=== PATIENT | male | born 1950 | race Two or more races ===

== ENCOUNTER → 2017-10-02 | Outpatient (CLI) | payer OTHER ==
[~2017-10-02] VITALS: Ht 185.4 cm; Wt 80.9 kg
[2017-10-02 12:29] VITALS: BP 136/75; PULSE 66; Ht 185.4 cm; Wt 80.9 kg
== END | disposition home or self-care (01) ==
LOC: C.NEUR 12:18
PROVIDERS: ATTEND Internal Medicine Pulmonary Disease
DX: G47.33 Obstructive sleep apnea (adult) (pediatric) (principal); J30.9 Allergic rhinitis, unspecified; J45.909 Unspecified asthma, uncomplicated; Z88.6 Allergy status to analgesic agent; Z88.0 Allergy status to penicillin

== ENCOUNTER 2024-02-05 10:08 | Observation (INO) ==
[2024-02-05 10:49] LABS: Basophils # (auto) 0.04 K/uL (0.00-0.20); Basophils % (auto) 0.5 %; Eosinophils # (auto) 0.48 K/uL (0.00-0.50); Hematocrit (blood only) 36.8 % (42.0-52.0); Hemoglobin 12.8 g/dl (14.0-18.0); Immature Granulocytes # (auto) 0.12 K/uL (0.01-0.20); Immature Granulocytes % (auto) 1.5 %; Lymphocytes # (auto) 3.28 K/uL (1.20-3.40); Lymphocytes % (auto) 41.2 %; Mean Corpuscular Hemoglobin 31.3 pg (25.0-34.0); Mean Corpuscular Hgb Conc 34.8 g/dL (32.0-36.0); Mean Platelet Volume 9.8 fL (9.4-12.4); Monocytes % (auto) 10.1 %; Neutrophils # (auto) 3.24 K/uL (1.40-6.50); Neutrophils % (auto) 40.7 %; Platelet Count 226 K/uL (130-400); RDW Coefficient of Variation 12.4 % (11.5-14.5); RDW Standard Deviation 40.7 fL (36.4-46.3); Red Blood Count 4.09 M/uL (4.70-6.10); White Blood Count 7.96 K/ul (4.8-10.8)
[2024-02-05 11:09] LABS: Albumin Level 3.8 gm/dl (3.4-5.0); BUN Creatinine Ratio 14.4 (10-20); Bilirubin,Total 0.6 mg/dl (0.2-1.0); Calcium 8.9 mg/dl (8.6-10.3); Creatinine Clr Calc Pharmacy 62.9 ml/min; Est GFR (African American) 70.5 ml/min; Est GFR (Non-African American) 60.9 ml/min; Globulin 3.8 gm/dl (2.5-4.0); Potassium 4.2 mmol/L (3.5-5.1); Total Protein 7.6 gm/dl (6.0-8.3)
[2024-02-05 11:16] LABS: Troponin I High Sensitivity 6.1 pg/ml (0-20)
[2024-02-05 11:17] LABS: Partial Thromboplastin Ratio 0.9; Partial Thromboplastin Time 25 Seconds (21-31); Prothrombin Time 10.6 Seconds (9.0-12.0)
--- NOTE | 2024-02-05 11:41 | Emergency Department Note ---
Impression & Plan Precordial chest pain, Exertional chest pain, Anemia ED Provider Note NAME: SHASHI BECERRA AGE: 73 SEX: M : 1950 ARRIVES VIA: Walk-In INFORMANT: [Patient] ED PROVIDER(S): [Kyle Gómez MD] CHIEF COMPLAINT: Chest pain HISTORY OF PRESENT ILLNESS: The patient is a 73-year-old male who presents to the ER with exertional chest pain. This has been occurring for a few months. The pain is noticed with walking and exertion. He notices it mostly when he tries to walk uphill. The pain can last for minutes and then resolves with rest. The patient saw pulmonology as well as family doctor's office. He was referred to the ER as they feel the patient may need a cardiac catheterization. He has previously had 2 stress tests. Patient is traveling out of the country in 10 days. To this point, he has no diagnosed coronary disease. PMHx/PSHx/Social Hx: See Below PHYSICAL EXAM: GENERAL: Patient is in no acute distress. HEENT: No acute trauma, normocephalic atraumatic, mucous membranes moist, no nasal congestion. NECK: No stridor, no adenopathy, no meningismus, trachea is midline. LUNGS: Clear to auscultation bilaterally, no wheeze, no rhonchi, breath sounds equal. HEART: Bradycardic, regular rhythm, no murmurs. ABDOMEN: Soft, nontender, no peritonitis. EXTREMITIES: No cyanosis, full range of motion of all the joints without pain or difficulty. No pedal edema. NEUROLOGIC: Oriented x 3, no acute motor or sensory deficits, no focal weakness. SKIN: No jaundice, no diaphoresis. DIFFERENTIAL DIAGNOSIS: Angina, [place], anemia, CHF, among others. EMERGENCY DEPARTMENT PROCEDURES: MEDICAL DECISION MAKING: There is no leukocytosis. A mild anemia was seen. There was a normal platelet count. No coagulopathy. No renal failure or significant electrolyte abnormality. No concerning liver enzyme elevation. ECG showed a sinus bradycardia, no ischemia. Cardiac enzyme testing x 1 is not consistent with acute cardiac injury. Chest x-ray does not show mediastinal widening, pneumonia or pneumothorax. On exam, the patient was resting comfortably. He had no complaints of chest pain. The patient presents with exertional chest pain. This has been ongoing for months. His complaints were suggestive of angina. He has in the past undergone stress testing but has not been diagnosed with coronary disease. He was referred by his tr[facility] pinion and wheel and family doctor's office as further cardiac workup was felt warranted. Patient is in need of a hospital stay. I agree he requires further workup, likely a cardiac catheterization. I spoke with the patient, I spoke with case management, the on-call hospitalist was consulted. Cardiology was consulted and spoke with the admitting hospitalist. Prior/Outside records/notes reviewed: None ECG per my interpretation: Indication was chest pain. The ECG shows a sinus bradycardia with a rate of 51. There is no acute ST elevation, no PVCs. The QTc is 414. Continuous Cardiac Monitoring per my interpretation: An order was placed for continuous cardiac monitoring. The monitor shows a rate of 56 with sinus pericardia. Imaging/x-ray results per my interpretation: Chest x-ray does not show mediastinal widening, pneumonia or pneumothorax. Chronic Medical/Social conditions affecting care: Advanced age. Care/Management discussed with: Case management, the on-call hospitalist. Level of care consideration(s): After review of the information above and other included data: --I believe the patient requires escalation of care to admission DISPOSITION: Admission Past Med/Surg History Problem List (Updated 02/05/24 @ 15:39 by Kyle Gómez MD) Anemia (Acute) Exertional chest pain (Acute) Precordial chest pain (Acute) Exertional angina History of latent tuberculosis Chronic cough Allergic rhinitis with postnasal drip Appendix disease Weak urinary stream Urinary symptom or sign Obstructive sleep apnea Psoriasis Allergic conjunctivitis and rhinitis (Acute) Asthma (Acute) Medical History Back problem History of bronchitis Dental root implant present (~2023) Hypertension Rheumatoid arthritis Surgical History (Updated 12/24/23 @ 12:04 by Sil Cifuentes, KORI) Hx of colonoscopy History of tonsillectomy and adenoidectomy Family History (Updated 01/02/24 @ 13:29 by Tiffany Clements, KORI) Mother Dementia Hypertension Stroke Heart disease Brother Hypertension Dyslipidemia Cancer Father Lung cancer Cancer Family/Other Cancer Other Asthma Social History Smoking Status: Never smoker Hx Alcohol Use: Yes Hx Substance Use: No Preferred Language: Amharic marital status: Current Living Situation: Spouse current occupational status: employed current occupation: Professor How many Children do You have: 2 Feels Safe at Home: Yes Diet: vegetarian during the past year weight has: remained stable Allergies Allergies Allergy/AdvReac Type Severity Reaction Status Date / Time ibuprofen Allergy Abdominal Verified 02/05/24 13:48 Pain perflutren [From Definity] Allergy Back Pain Verified 02/05/24 13:48 pollen extracts Allergy Cough Verified 02/05/24 13:48 Codeine Derivatives Allergy Unknown Uncoded 01/24/24 10:07 Penicillins Allergy Unknown Uncoded 01/24/24 10:07 Home Meds Home Medications Medication Instructions Recorded Confirmed diphenhydramine HCl 25 mg capsule 25 mg PO Q8H PRN Insomnia 04/15/19 02/05/24 (Benadryl) adalimumab 40 mg/0.8 mL 40 mg subcut Q14D 12/12/22 02/05/24 subcutaneous syringe kit (Humira) dupilumab 200 mg/1.14 mL 200 mg subcut .EVERY 2 WEEKS 12/12/22 02/05/24 subcutaneous pen injector ([employer]) CPAP Machine 02/05/24 02/05/24 fluticasone 100 mcg-salmeterol 50 1 inh inhalation DAILY 02/05/24 02/05/24 mcg/dose blistr powdr for inhalation (Advair Diskus) lisinopril 20 1 tab PO BID 02/05/24 02/05/24 mg-hydrochlorothiazide 12.5 mg tablet metoprolol succinate 25 mg 25 mg PO DAILY 02/05/24 02/05/24 tablet,extended release 24 hr Previous Rx's Medication Instructions Recorded albuterol sulfate 90 mcg/actuation 2 puff inhalation Q6H PRN 01/30/24 aerosol inhaler shortness of breath or wheezing #8.5 grams fluticasone propionate 50 1 spray intranasal DAILY #9.9 grams 01/30/24 mcg/actuation nasal spray,suspension (Allergy Relief (fluticasone)) montelukast 10 mg tablet 10 mg PO QPM #30 tabs 01/30/24 (Singulair) Results & Data (ED) Vital Signs Vital Signs - 24 hr 02/05/24 10:14 02/05/24 11:24 02/05/24 11:24 Temperature 36.6 C Temperature Source Temporal Artery Scan Pulse Rate 55 L 46 L Pulse Rate [Finger] 44 L Pulse Rate from SpO2 Sensor Pulse Rhythm [Finger] Regular Pulse Strength [Finger] Normal Respiratory Rate 19 18 18 Respiratory Effort / Characteristics Non-Labored Spontaneous Non-Labored Spontaneous Respiratory Depth Normal Normal Respiratory Pattern Blood Pressure 133/63 Blood Pressure [Right Arm] 154/77 H Blood Pressure Mean 86 Blood Pressure Mean [Right Arm] 102 Blood Pressure Position Sitting Pulse Oximetry 100 99 97 Oxygen Delivery Method Room Air Room Air Room Air Sepsis Recent Fever Within 48 Hours No Sepsis New/Unexplained Change in Mental Status No Sepsis Action Taken by Nursing No Action Required 02/05/24 11:45 02/05/24 12:03 02/05/24 12:30 Temperature Temperature Source Pulse Rate 56 L 53 L 57 L Pulse Rate [Finger] Pulse Rate from SpO2 Sensor 52 L Pulse Rhythm [Finger] Pulse Strength [Finger] Respiratory Rate 15 16 Respiratory Effort / Characteristics Respiratory Depth Respiratory Pattern Blood Pressure 152/82 H 183/82 H Blood Pressure [Right Arm] Blood Pressure Mean 105 115 Blood Pressure Mean [Right Arm] Blood Pressure Position Pulse Oximetry 99 99 Oxygen Delivery Method Sepsis Recent Fever Within 48 Hours Sepsis New/Unexplained Change in Mental Status Sepsis Action Taken by Nursing 02/05/24 13:45 02/05/24 15:19 Temperature Temperature Source Pulse Rate Pulse Rate [Finger] 52 L 49 L Pulse Rate from SpO2 Sensor Pulse Rhythm [Finger] Regular Pulse Strength [Finger] Normal Respiratory Rate 16 18 Respiratory Effort / Characteristics Non-Labored Spontaneous Non-Labored Spontaneous Respiratory Depth Normal Normal Respiratory Pattern Regular Blood Pressure Blood Pressure [Right Arm] 156/73 H Blood Pressure Mean Blood Pressure Mean [Right Arm] 100 Blood Pressure Position Pulse Oximetry 99 98 Oxygen Delivery Method Room Air Room Air Sepsis Recent Fever Within 48 Hours Sepsis New/Unexplained Change in Mental Status Sepsis Action Taken by [facility] Medications Current Medication List: was personally reviewed by me Laboratory Data Attestation: I reviewed the patient's lab results. 02/05/24 10:26 02/05/24 10:26 Lab Results 02/05/24 Range/Units 10:26 WBC 7.96 (4.8-10.8) K/ul RBC 4.09 L (4.70-6.10) M/uL Hgb 12.8 L (14.0-18.0) g/dl Hct 36.8 L (42.0-52.0) % MCV 90.0 (80.0-100.0) fL MCH 31.3 (25.0-34.0) pg MCHC 34.8 (32.0-36.0) g/dL RDW Std Deviation 40.7 (36.4-46.3) fL RDW Coeff of Monika 12.4 (11.5-14.5) % Plt Count 226 (130-400) K/uL MPV 9.8 (9.4-12.4) fL Immature Gran % (Auto) 1.5 % Neut % (Auto) 40.7 % Lymph % (Auto) 41.2 % [place] % (Auto) 10.1 % Eos % (Auto) 6.0 % Baso % (Auto) 0.5 % Neut # (Auto) 3.24 (1.40-6.50) K/uL Lymph # (Auto) 3.28 (1.20-3.40) K/uL [place] # (Auto) 0.80 H (0.11-0.59) K/uL Eos # (Auto) 0.48 (0.00-0.50) K/uL Baso # (Auto) 0.04 (0.00-0.20) K/uL Immature Gran # (Auto) 0.12 (0.01-0.20) K/uL PT 10.6 (9.0-12.0) Seconds INR 1.0 (0.9-1.1) APTT 25 (21-31) Seconds PTT Ratio 0.9 Sodium 137 (136-145) mmol/L Potassium 4.2 (3.5-5.1) mmol/L Chloride 106 (98-107) mmol/L Carbon Dioxide 24 (21-32) mmol/L Anion Gap 7 (3-11) BUN 17 (6-23) mg/dl Creatinine 1.18 (0.6-1.4) mg/dl Est Cr Clr Drug Dosing 62.9 ml/min Est GFR ( Amer) 70.5 ml/min Est GFR (Non-Af Amer) 60.9 ml/min BUN/Creatinine Ratio 14.4 (10-20) Glucose 97 (70-99(Fasting)) mg/dl Calcium 8.9 (8.6-10.3) mg/dl Total Bilirubin 0.6 (0.2-1.0) mg/dl AST 19 (13-39) U/L ALT 16 (7-52) U/L Alkaline Phosphatase 51 (34-104) U/L Troponin I High Sens 6.1 (0-20) pg/ml Total Protein 7.6 (6.0-8.3) gm/dl Albumin 3.8 (3.4-5.0) gm/dl Globulin 3.8 (2.5-4.0) gm/dl Albumin/Globulin Ratio 1.0 (0.9-2) Imaging Data Radiologist's Impression: Chest X-Ray 02/05/24 10:24 XR chest 1V not portable CLINICAL HISTORY: Chest pain, nonspecific COMPARISON STUDY: Chest CT and chest radiograph December 12, 2023. FINDINGS: Lung volumes are normal. Lungs are clear. There is no pneumothorax or pleural effusion. Cardiac size is normal. Mediastinal contours are normal. There is no evidence for pulmonary edema. IMPRESSION: No acute cardiopulmonary findings. ACT 112: Negative or not required by law. Electronically signed by: Nathan Messina M.D. 02/05/2024 11:56 AM Discharge Plan Visit Data Chief Complaint: Chest Pain Stated Complaint: CHEST PAIN, REF BY DOC ED Provider: Kyle Gómez Discharge Problem: Precordial chest pain, Exertional chest pain, Anemia Patient Disposition: Admitted As Inpatient Condition: Good Forms Stand Alone Forms: My [facility] Prescriptions Prescriptions: No Action albuterol sulfate 90 mcg/actuation HFA aerosol inhaler 2 puff inhalation Q6H PRN (Reason: shortness of breath or wheezing) Qty: 8.5 3RF Rx Instructions: ProAir, Proventil or Ventolin diphenhydramine HCl [Benadryl] 25 mg capsule 25 mg PO Q8H PRN (Reason: Insomnia) Humira 40 mg/0.8 mL syringe kit 40 mg subcut Q14D Dupixent Pen 200 mg/1.14 mL pen injector 200 mg subcut .EVERY 2 WEEKS Rx Instructions: 1 injection every 2 weeks fluticasone propionate [Allergy Relief (fluticasone)] 50 mcg/actuation spray,suspension 1 spray intranasal DAILY Qty: 9.9 1RF Rx Instructions: administer into each nostril once daily montelukast [Singulair] 10 mg tablet 10 mg PO QPM Qty: 30 2RF lisinopril-hydrochlorothiazide 20-12.5 mg tablet 1 tab PO BID metoprolol succinate 25 mg tablet extended release 24 hr 25 mg PO DAILY (DME) CPAP Machine Rx Instructions: uses at night. fluticasone propion-salmeterol [Advair Diskus] 100-50 mcg/dose blister with device 1 inh INH DAILY Referrals Referrals: Darren Hoover MD [Primary Care Provider] - Discharge Problem: Anemia Qualifiers: Anemia type: unspecified type Qualified Code(s): D64.9 - Anemia, unspecified
--- NOTE | 2024-02-05 11:57 | XRay Report ---
XR chest 1V not portable CLINICAL HISTORY: Chest pain, nonspecific COMPARISON STUDY: Chest CT and chest radiograph December 12, 2023. FINDINGS: Lung volumes are normal. Lungs are clear. There is no pneumothorax or pleural effusion. Car diac size is normal. Mediastinal contours are normal. There is no evidence for pulmonary edema. IMPRESSION: No acute cardiopulmonary findings. ACT 112: Negative or not required by law. Electronically signed by: Nathan Messina M.D. 02/05/2024 11:56 AM
--- NOTE | 2024-02-05 12:14 | History & Physical Report ---
Date of Service February 05, 2024 Assessment & Plan (1) Exertional angina: Plan: Exertional angina - Chest pain with exterion and walking up hill, consistently reproduced with exertion and improve with rest. Gradually worsening over the last several weeks, coming on with less exercise. No pain onset at rest at any point High sensitivity troponin is normal EKG sinus bradycardia, compared to 06/2020 EKG patient now has inferior T wave inversions. No territorial ST segment changes No chest pain at time of admitting assessment. No reproducible chest pain Reviewed with cardiology. Reasonable to pursue catheterization. - Patient has not eaten today, had a glass of tea at around 7:30 in the morning. Will attempt to arrange for cardiac cath (2) History of latent tuberculosis: Plan: History of latent TB Previously treated with 9 months of isoniazid, AFB cultures negative. Following with pulmonology. Chest x-ray without acute findings Last chest CT 12/2023 with no acute intrathoracic/abdominal/pelvic abnormalities No active disease, isolation not required Plan Chronic stable issues Asthma: Continue inhalers, montelukast. Evidence of acute exasperation. If cath is negative symptoms could represent reactive airway disease/spasm. No wheezing on admission LOIS: Continue CPAP at bedtime Hypertension: Lisinopril continued DVT prophylaxis: Lovenox Disposition: Medical telemetry Code: Full Diet: N.p.o. pending cardiology evaluation, if cath is to be arranged tomorrow then can make heart healthy, n.p.o. midnight History of Present Illness Primary Care Provider: Darren Hoover MD Mr. Hampton is a 73-year-old male with a past medical history of hypertension, LOIS, prior history of latent TB treated with 9 months of isoniazid and with negative sputum AFB, and asthma who was seen by pulmonology for outpatient follow-up and was recommended to present to the ER for potential cardiac catheterization for recurrent exertional chest discomfort with walking/exertion, worse with intense exertion, and which resolves with rest and which has not occurred at rest. Patient has had 2 lower stress test in the past but continues to be symptomatic. He is traveling out of the country in 10 days. Was recommended for ER evaluation and cardiology consultation for potential catheterization. He has no previously diagnosed coronary disease. Mr. Hampton reports for the last several month she has has chest pain with exertion. Notes whenever he walks up an uphill incline, or when trying to use the treadmill he develops chest pain. Chest pain improves with rest. He has not had symptoms incited at rest. When it occurs it is under the sternum and off a little bit to the left side. Does not radiate. He is exertion himself, so he does associate it with sweating and shortness of breath and notes it tends to happen towards the end of exercise. He does feel is has been coming on more easily/quickly gradually over the last few weeks Last stress test was 2018. Has had 2x stress tests low risk in the past No pain at tiem of assessment No prior history of CT Denies history of DM +hx of latent TB treated with 9 months of tx several years ago. +latent TB. No leg swelling when taking his medications Denies orthopnea Medical History: Reviewed Medications: Reviewed Surgical History: Reviewed Family history: Reviewed Allergies: Reviewed. PCN Social History: No tobacco use. No vape use. Social rare etoh use. Code Status:Full Allergies Allergy/AdvReac Type Severity Reaction Status Date / Time ibuprofen Allergy Abdominal Verified 02/05/24 13:48 Pain perflutren [From Definity] Allergy Back Pain Verified 02/05/24 13:48 pollen extracts Allergy Cough Verified 02/05/24 13:48 Codeine Derivatives Allergy Unknown Uncoded 01/24/24 10:07 Penicillins Allergy Unknown Uncoded 01/24/24 10:07 Home Medications Medication Instructions Recorded Confirmed Type diphenhydramine HCl 25 mg capsule 25 mg PO Q8H PRN Insomnia 04/15/19 02/05/24 History (Benadryl) adalimumab 40 mg/0.8 mL 40 mg subcut Q14D 12/12/22 02/05/24 History subcutaneous syringe kit (Humira) dupilumab 200 mg/1.14 mL 200 mg subcut .EVERY 2 WEEKS 12/12/22 02/05/24 History subcutaneous pen injector (Dupixent) albuterol sulfate 90 mcg/actuation 2 puff inhalation Q6H PRN 01/30/24 02/05/24 Rx aerosol inhaler shortness of breath or wheezing #8.5 grams fluticasone propionate 50 1 spray intranasal DAILY #9.9 grams 01/30/24 02/05/24 Rx mcg/actuation nasal spray,suspension (Allergy Relief (fluticasone)) montelukast 10 mg tablet 10 mg PO QPM #30 tabs 01/30/24 02/05/24 Rx (Singulair) CPAP Machine 02/05/24 02/05/24 History fluticasone 100 mcg-salmeterol 50 1 inh inhalation DAILY 02/05/24 02/05/24 History mcg/dose blistr powdr for inhalation (Advair Diskus) lisinopril 20 1 tab PO BID 02/05/24 02/05/24 History mg-hydrochlorothiazide 12.5 mg tablet metoprolol succinate 25 mg 25 mg PO DAILY 02/05/24 02/05/24 History tablet,extended release 24 hr Past Med/Surg History Problem List (Updated 02/05/24 @ 12:13 by Jerrod Arboleda MD) Exertional angina History of latent tuberculosis Chronic cough Allergic rhinitis with postnasal drip Appendix disease Weak urinary stream Urinary symptom or sign Obstructive sleep apnea Psoriasis Allergic conjunctivitis and rhinitis (Acute) Asthma (Acute) Medical History (Updated 02/05/24 @ 12:13 by Jerrod Arboleda MD) Back problem History of bronchitis Dental root implant present (~2023) Hypertension Rheumatoid arthritis Surgical History (Updated 12/24/23 @ 12:04 by Sil Cifuentes RN) Hx of colonoscopy History of tonsillectomy and adenoidectomy Family History (Updated 01/02/24 @ 13:29 by Tiffany Clements RN) Mother Dementia Hypertension Stroke Heart disease Brother Hypertension Dyslipidemia Cancer Father Lung cancer Cancer Family/Other Cancer Other Asthma Social History (Updated 01/02/24 @ 13:29 by Tiffany Clements RN) Smoking Status: Never smoker Hx Alcohol Use: Yes Hx Substance Use: No Preferred Language: Uzbek marital status: Current Living Situation: Spouse current occupational status: employed current occupation: Professor How many Children do You have: 2 Feels Safe at Home: Yes Diet: vegetarian during the past year weight has: remained stable Physical Exam Physical Exam: General: A&Ox3. NAD. Cooperative. HEENT: Atraumatic, normocephalic. PERLAA. Vision/hearing intact Pulm: CTAB A&P. -wheezes, -rales, -rhonchi. Symmetrical chest rise. No increased work of breathing. No respiratory distress. Cardiac: RRR, -mrg. Radial pulses intact and symmetrical. Abdominal: Nontender, nondistended, soft. BS present. Ext: warm, dry. moves extremities equally Results & Data Results & Data Vital Signs (Past 12 Hours) Vital Signs Temp Pulse Pulse Resp BP BP Pulse Ox 02/05/24 11:45 56 L 02/05/24 11:24 46 L 18 97 02/05/24 11:24 44 L 18 154/77 H 99 02/05/24 10:14 36.6 C 55 L 19 133/63 100 O2 Del Method 02/05/24 11:45 02/05/24 11:24 Room Air 02/05/24 11:24 Room Air 02/05/24 10:14 Room Air PG Care Time/CCT Total # of Minutes Spent Total Time Spent with Patient: Total time spent is greater than 50% in coordination of care (as documented) at patient's floor/unit and/or counseling patient: Coding Level of Care Code 06350 INT INP/OBS CARE 2/55MIN Diagnoses Exertional angina I20.89 History of latent tuberculosis Z86.15
--- OUTSIDE RECORDS SUMMARY | 2024-02-05 14:17 | External Medical Summary | Continuity of Care Document ---
Author Name Unknown Organization [address] [id number] Care Team Providers Care Automobile Radio Repairer Name Role Phone Darren Hoover Primary Care Physician [id number] [phone] Encounter [facility] [phone] Date(s): 02/01/24 - 02/01/[address] [address] [phone] Discharge Disposition: Home or Self Care Attending Physician: JOSUE Shea Danielle B Allergies, Adverse Reactions, Alerts Substance Criticality Severity Reaction Reaction Severity Status codeine nausea Active ibuprofen "changes in blood pressure" Active penicillin hives Active Pollen upper resp symptoms Active Immunizations Given and Recorded Vaccine Date Status Refusal Reason zoster vaccine, inactivated 11/22/23 Given zoster vaccine, inactivated 07/18/23 Given influenza virus vaccine, inactivated 04/11/23 Give n influenza virus vaccine, inactivated 03/08/22 Give n influenza virus vaccine, inactivated 03/08/20 Give n influenza virus vaccine, inactivated 03/04/19 Royal rded influenza virus vaccine, inactivated 02/23/17 Give n influenza virus vaccine, inactivated 02/23/16 Give n influenza virus vaccine, inactivated 06/20/13 Give n tetanus/diphtheria/pertuss, acel (Tdap) 09/13/20 G iven tetanus/diphtheria/pertuss, acel (Tdap) 12/19/10 R ecorded SARS-CoV-2 (COVID-19) mRNA-1273 vaccine 1 06/29/20 Recorded pneumococcal 23-valent vaccine 04/26/18 Given pneumococcal 23-valent vaccine 2 03/04/13 Recorded pneumococcal 23-valent vaccine 3 11/29/12 Given pneumococcal 23-valent vaccine 05/18/06 Recorded pneumococcal 13-valent vaccine 01/18/15 Given pneumococcal 13-valent vaccine 4 01/02/15 Recorded hepatitis A adult vaccine 07/07/13 Given hepatitis A adult vaccine 12/09/12 Given zoster vaccine live 5 12/09/12 Given meningococcal conjugate vaccine 6 11/29/12 Given tetanus toxoids-diphtheria, Td (Adult) 01/02/05 Re corded 1Result Comment: 2020-07-01: Historical information-source unspecified 2Result Comment: 2020-07-01: Historical information-source unspecified 3Result Comment: VIS 07/31/12 4Result Comment: 2020-07-01: Historical information-source unspecified 5Result Comment: dilutent lot: [id number] exp: 05/17 6Result Comment: VIS 03/17/2011 Medications Advair Diskus 100 mcg-50 mcg Start: 07/18/23 1:35:00 PM EST, See Instructions, Disp# 3 each, Refills: 3, INHALE 1 PUFF EVERY 12 HOURS, Pharmacy: [facility] Start Date: 07/18/23 Status: Ordered Albuterol (Eqv-ProAir HFA) 90 mcg/inh inhalation aerosol Start: 01/22/24 4:44:00 PM EDT, 2 puff, inhaled, qid, Disp# 1 each, Refills: 3, PRN: NEEDED FOR WHEEZING, Pharmacy: [facility] Start Date: 01/22/24 Status: Ordered aspirin 81 mg oral delayed release tablet Start: 04/25/23 9:58:00 AM EST, 1 tab, PO, Daily Start Date: 04/25/23 Status: Ordered Benadryl 25 mg oral capsule Start: 10/26/22 8:34:00 AM EDT, 1 cap, PO, tid, PRN: as needed for insomnia Start Date: 10/26/22 Status: Ordered calcium carbonate Start: 10/26/22 8:34:00 AM EDT Start Date: 10/26/22 Status: Ordered Dupixent Pen 300 mg/2 mL SQ solution Start: 04/11/23 2:28:00 PM EST, See Instructions, Disp# 2 each, Refills: 3, 300 mg subQ every other week, Pharmacy: [facility] Start Date: 04/11/23 Status: Ordered Flonase Start: 02/01/24 3:01:00 PM EDT Start Date: 02/01/24 Status: Ordered Humira Pen 40 mg/0.8 mL subcutaneous kit Start: 02/23/17 8:25:00 AM EDT, 0.4 mL, subQ, [id number] Start Date: 02/23/17 Status: Ordered hydrochlorothiazide-lisinopril 12.5 mg-20 mg oral tablet Start: 11/14/23 8:16:00 AM EDT, 2 tab, PO, Daily, Disp# 180 tab, Refills: 0, Pharmacy: [facility] Start Date: 11/14/23 Status: Ordered metoprolol succinate 25 mg oral tablet, extended release Start: 07/18/23 2:01:00 PM EST, 1 tab, PO, Daily, Disp# 90 tab, Refills: 3, Pharmacy: [facility] Start Date: 07/18/23 Stop Date: 11/15/23 Status: Ordered Singulair Start: 02/01/24 3:01:00 PM EDT Start Date: 02/01/24 Status: Ordered Vitamin B Complex Start: 10/26/22 8:33:00 AM EDT Start Date: 10/26/22 Status: Ordered Vitamin D3 Start: 10/26/22 8:33:00 AM EDT Start Date: 10/26/22 Status: Ordered Mental Status 02/01/24 Barriers to Learning one year None evide nt Mandatory Health Literacy Documentation Yes Health Literacy Communication Barriers N ever Primary Language Venezuelan Problem List Condition Confirmation Course Effective Dates Status H ealth Status Informant Abnormal defecation 1 Confirmed Active ASTHMA Confirmed 11/17/10 Active BENIGN NEOPLASM OF COLON 2, 3 Confirmed 11/17/10 Active Depression Confirmed Active Dermatitis Confirmed Active ED (erectile dysfunction) Confirmed Active Long-term use of high-risk medication Confirmed Active HYPERTENSION Confirmed 11/17/10 Active Impaired fasting glucose Confirmed Active Dermatitis Confirmed Active Left lumbar radiculopathy Confirmed Active MIXED HYPERLIPIDEMIA Confirmed 11/17/10 Active LOIS on CPAP Confirmed Active 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 2colonoscopy 12/2010: hemorrhoids, repeat in 5 years 3colonoscopy 06/2006: tubular adenoma 4sees Dr. Verdin 5sees Dr. Kolby Perez Procedures Procedure Date Related Diagnosis Body Site Status Clavicle X-ray 1 11/17/[address] of abdomen and pelvis 2 02/28/22 Completed Colonoscopy 3 04/06/21 Completed Punch biopsy of skin 03/11/20 Comp leted Cataract surgery 4 01/03/20 Comple harish Shave biopsy and cauterization of skin 07/22/19 Completed CXR - Chest X-ray 5 05/19/19 Compl eted Colonoscopy 6 03/01/16 Completed colonoscopy 06/04/06 Completed Dental implant system 7 C ompleted PPD on 10/29/12 by Bat Person Completed Procedure 8 Completed Punch biopsy Completed Teeth Implants Completed Tonsillectomy and adenoidectomy Completed 1Impression: No evidence of fracture or dislocation. 2no etiology for acute abdominal pain 3COLO to cecum, 8 mm HF polyp CS, hemorrhoids. 4both eyes done 5No acute cardiopulmonary findings. 6The examined portion of the ileum was normal. Non-bleeding internal hemorrhoids. No specimens collected. Miralax 1 capful in 8 ounces of water po daily indefinitely Repeat colonoscopy in 5 years for surveillance. 7Dec 2021, Jul 2022 8cataract removed [facility] 2019 Vital Signs Most recent to oldest [Reference Range]: 1 Patient Weight 80.1 kg (02/01/24 3:01 PM) Temperature [36.5-37.9 DegC] 36.6 DegC (02/01/24 3:01 PM) Heart Rate 55 bpm (02/01/24 3:01 PM) Respiratory Rate 17 br/min (02/01/24 3:01 PM) Blood Pressure 125/70mmHg (02/01/24 3:01 PM) Cuff Pulse Pressure 55 mmHg (02/01/24 3:01 PM) Social History Social History Type Response Smoking Status Never smoked cigaret jazmín Sex Male Sex Representation Male (finding) Patient Care team information Care Team Personnel Name: MD Hoover Juan Position: Physician - Family Med Member Role: Primary Care Provider Address: [address] [place] [id number] [place] Care Team Related Persons Name: MARY CARMEN BECERRA
[2024-02-05 15:20] VITALS: RESP 18
--- NOTE | 2024-02-05 17:57 | Electrocardiogram Report ---
Test Reason : Blood Pressure : */* mmHG Vent. Rate : 51 BPM Atrial Rate : 51 BPM P-R Int : 152 ms QRS Dur : 88 ms QT Int : 450 ms P-R-T Axes : -23 -14 -13 degrees QTcB Int : 414 ms Sinus bradycardia Abnormal ECG When compared with ECG of 06-Jun-2020 14:49, Vent. rate has decreased by 35 bpm Left anterior fascicular block is no longer Present Inverted T waves have replaced nonspecific T wave abnormality in Inferior leads Confirmed by Flako Chapman ([id number]) on 02/05/2024 5:56:43 PM Referred By: Confirmed By: Flako Chapman
[2024-02-05] MEDS ORDERED: NITROGLYCERIN SL 0.4 MG/TAB TAB SL PRN (18:05)
--- NOTE | 2024-02-05 19:33 | XCELERA ---
[id number] \\[id number]
[2024-02-05] MEDS: METOPROLOL SUCC 25MG EXT REL TAB PO STA (22:29)
[2024-02-05] MEDS: MONTELUKAST SODIUM 10 MG TABLET PO SCH (22:29)
[2024-02-05] MEDS: LISINOPRIL/HCTZ 20/12.5MG 1 TAB TAB PO STA (22:29)
[2024-02-05] MEDS: ACETAMINOPHEN 325 MG TAB PO PRN (22:34)
[2024-02-06 03:40] VITALS: TEMP 98.1; O2SAT 98
[2024-02-06 08:17] LABS: Basophils # (auto) 0.04 K/uL (0.00-0.20); Basophils % (auto) 0.5 %; Eosinophils # (auto) 0.58 K/uL (0.00-0.50); Eosinophils % (auto) 7.2 %; Hematocrit (blood only) 37.5 % (42.0-52.0); Hemoglobin 12.6 g/dl (14.0-18.0); Immature Granulocytes # (auto) 0.03 K/uL (0.01-0.20); Immature Granulocytes % (auto) 0.4 %; Lymphocytes # (auto) 3.41 K/uL (1.20-3.40); Lymphocytes % (auto) 42.2 %; Mean Corpuscular Hemoglobin 30.7 pg (25.0-34.0); Mean Corpuscular Hgb Conc 33.6 g/dL (32.0-36.0); Mean Corpuscular Volume 91.2 fL (80.0-100.0); Mean Platelet Volume 9.6 fL (9.4-12.4); Monocytes # (auto) 0.74 K/uL (0.11-0.59); Monocytes % (auto) 9.2 %; Neutrophils # (auto) 3.28 K/uL (1.40-6.50); Neutrophils % (auto) 40.5 %; Platelet Count 247 K/uL (130-400); RDW Coefficient of Variation 12.5 % (11.5-14.5); RDW Standard Deviation 41.1 fL (36.4-46.3); Red Blood Count 4.11 M/uL (4.70-6.10); White Blood Count 8.08 K/ul (4.8-10.8)
[2024-02-06 08:31] LABS: BUN Creatinine Ratio 17.6 (10-20); Calcium 8.7 mg/dl (8.6-10.3); Creatinine Clr Calc Pharmacy 67.4 ml/min; Est GFR (African American) 78.5 ml/min; Est GFR (Non-African American) 67.7 ml/min; Potassium 4.3 mmol/L (3.5-5.1)
[2024-02-06] MEDS ORDERED: lisinopril 20 MG TAB PO SCH (09:00)
[2024-02-06] MEDS ORDERED: amLODIPine BESYLATE 5 MG TAB PO SCH (09:00)
[2024-02-06] MEDS ORDERED: hydroCHLOROthiazide 25 MG TAB PO SCH (09:00)
--- NOTE | 2024-02-06 12:34 | Cardiology Consultation ---
Date of Consultation February 06, 2024 Assessment & Plan (1) Exertional chest pain: Plan Removed. Exertional angina: The patient's symptoms are concerning for exertional angina. He is certainly in a demographic of individuals who are likely to have coronary disease. We did perform exercise echocardiography and he was able to exercise for 7 minutes before becoming fatigued and short of breath. He did not have his symptoms of chest discomfort during exercise. There was evidence of ischemia in the mid to distal inferior wall at peak exertion. I would consider this a low risk test suggestive of single-vessel coronary disease we discussed several options for evaluation and management. Since his symptoms tend to occur at extremes of exertion that he performs infrequently, there is likely little benefit from a symptom standpoint to any intervention. Additionally, he has preserved LV systolic function. No clear additional benefit from revascularization at this point. We discussed symptoms of which to be aware. Should he have progressive angina which occurs a less of a workload, we can always entertain angiography and intervention. Otherwise we should engage on aggressive risk factor modification to include the addition of statin agent for goal LDL less than 70 more regular exercise and close monitoring of blood pressure.The addition of a daily aspirin 81 mg is also recommended History of Present Illness Reason for Consultation: Exertional chest pain Requesting Physician: Robles Attending Physician: Pérez Beaver History of Present Illness The patient is a 73-year-old gentleman without a known history of cardiac disease who was referred to the emergency room for symptoms of exertional chest pain. According to the patient he has had a couple of episodes of chest discomfort with activity over the past several weeks. Generally speaking he is fairly sedentary. He limits himself to walking on level ground and performing activity around the house. Occasionally he will perform more strenuous activities such as walking up a hill to his house or walking more rapidly. On 2 occasions he has noticed some discomfort with extremes of exertion. This did not appear to be associated with limiting dyspnea. Perhaps some mild dizziness. The symptoms involved a small area in the precordium. No radiation to the back, arm or jaw. The symptoms resolved with rest and have not occurred at rest. With lesser forms of activity and exertion he does not have symptoms. 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 He generally uses his inhaler before exercise. Otherwise he will become fatigued and short of breath. Again, no rest symptoms. He does not endorse symptoms of palpitations. No other episodes of dizziness, lightheadedness or syncope. Allergies Allergy/AdvReac Type Severity Reaction Status Date / Time ibuprofen Allergy Abdominal Verified 02/05/24 13:48 Pain perflutren [From Definity] Allergy Back Pain Verified 02/05/24 13:48 pollen extracts Allergy Cough Verified 02/05/24 13:48 Codeine Derivatives Allergy Unknown Uncoded 01/24/24 10:07 Penicillins Allergy Unknown Uncoded 01/24/24 10:07 Home Medications Medication Instructions Recorded Confirmed Type diphenhydramine HCl 25 mg capsule 25 mg PO Q8H PRN Insomnia 04/15/19 02/05/24 History (Benadryl) adalimumab 40 mg/0.8 mL 40 mg subcut Q14D 12/12/22 02/05/24 History subcutaneous syringe kit (Humira) dupilumab 200 mg/1.14 mL 200 mg subcut .EVERY 2 WEEKS 12/12/22 02/05/24 History subcutaneous pen injector (Dupixent) albuterol sulfate 90 mcg/actuation 2 puff inhalation Q6H PRN 01/30/24 02/05/24 Rx aerosol inhaler shortness of breath or wheezing #8.5 grams fluticasone propionate 50 1 spray intranasal DAILY #9.9 grams 01/30/24 02/05/24 Rx mcg/actuation nasal spray,suspension (Allergy Relief (fluticasone)) montelukast 10 mg tablet 10 mg PO QPM #30 tabs 01/30/24 02/05/24 Rx (Singulair) CPAP Machine 02/05/24 02/05/24 History fluticasone 100 mcg-salmeterol 50 1 inh inhalation DAILY 02/05/24 02/05/24 History mcg/dose blistr powdr for inhalation (Advair Diskus) lisinopril 20 1 tab PO BID 02/05/24 02/05/24 History mg-hydrochlorothiazide 12.5 mg tablet metoprolol succinate 25 mg 25 mg PO DAILY 02/05/24 02/05/24 History tablet,extended release 24 hr Patient History Medical History Back problem History of bronchitis Dental root implant present (~2023) Hypertension Rheumatoid arthritis Surgical History (Updated 12/24/23 @ 12:04 by Sil Cifuentes RN) Hx of colonoscopy History of tonsillectomy and adenoidectomy Family History (Updated 01/02/24 @ 13:29 by Tiffany Clements RN) Mother Dementia Hypertension Stroke Heart disease Brother Hypertension Dyslipidemia Cancer Father Lung cancer Cancer Family/Other Cancer Other Asthma Social History Smoking Status: Never smoker Hx Alcohol Use: Yes Alcohol type: beer, wine and hard liquor Hx Substance Use: No Preferred Language: Norwegian Communication Ability: Effective Manager Data Required: No Beliefs That Will Affect Care: None marital status: Current Living Situation: Spouse current occupational status: employed current occupation: Professor How many Children do You have: 2 Other Information That Helps Us Care for You: No Feels Safe at Home: Yes Safety Concerns: Feels Safe At This Time Diet: vegetarian during the past year weight has: remained stable Assistive Devices: CPAP and Glasses Review of Systems Review of Systems: Per HPI. Occasional chronic cough. Asthma as noted above. Physical Exam Physical Exam: The patient is alert and oriented. Mood and affect appeared normal. He answered all questions appropriately. HEENT: Pupils are equal and reactive to light and accommodation. Extraocular movements are intact. The sclerae are anicteric. Neuro: Cranial nerves intact Lungs: Clear to auscultation bilaterally. He has good air movement without use of accessory muscles. No rales wheezes or rhonchi. Cardiac: Heart demonstrates a regular rate and rhythm. Normal S1 and S2. No murmurs on examination. Pulses: The patient has palpable radial pulses bilaterally that are equal in intensity Extremities: There was no evidence of hypoperfusion. There is no cyanosis or clubbing. There is no edema. Skin: I did not appreciate any rashes on examination today. Atrial fibrillation Results & Data Vital Signs (Past 12 Hours) Vital Signs Temp Pulse Pulse Resp BP BP Pulse Ox 02/06/24 08:15 44 L 02/06/24 07:41 36.7 C 58 L 18 132/65 98 02/06/24 03:31 36.7 C 55 L 18 122/66 98 O2 Del Method 02/06/24 08:15 02/06/24 07:41 Room Air 02/06/24 03:31 Room Air Laboratory Results Abnormal Lab Results 09/04/24 07:52 WBC 8.08 RBC 4.11 L Hgb 12.6 L Hct 37.5 L MCV 91.2 MCH 30.7 MCHC 33.6 RDW Std Deviation 41.1 RDW Coeff of Monika 12.5 Plt Count 247 MPV 9.6 Immature Gran % (Auto) 0.4 Neut % (Auto) 40.5 Lymph % (Auto) 42.2 Montgomery % (Auto) 9.2 Eos % (Auto) 7.2 Baso % (Auto) 0.5 Neut # (Auto) 3.28 Lymph # (Auto) 3.41 H Montgomery # (Auto) 0.74 H Eos # (Auto) 0.58 H Baso # (Auto) 0.04 Immature Gran # (Auto) 0.03 Sodium 136 Potassium 4.3 Chloride 105 Carbon Dioxide 26 Anion Gap 5 BUN 19 Creatinine 1.08 Est Cr Clr Drug Dosing 67.4 Est GFR ( Amer) 78.5 Est GFR (Non-Af Amer) 67.7 BUN/Creatinine Ratio 17.6 Glucose 102 H Calcium 8.7 Diagnostic Findings Echocardiogram 02/05/2024: Normal LV systolic function with ejection fraction of 55 to 60%. Normal wall motion. Mildly elevated right ventricular systolic pressure 30 to 40 mmHg. No significant valvular heart disease. Chest x-ray obtained at the time admission did not reveal any acute cardiopulmonary findings. ECG Additional Comments: Baseline EKG is normal PG Care Time/CCT Total # of Minutes Spent Total Time Spent with Patient: Total time spent is greater than 50% in coordination of care (as documented) at patient's floor/unit and/or counseling patient: Coding Level of Care Code 53848 INT INP/OBS CARE 3/75MIN Diagnoses Exertional chest pain R07.9
--- NOTE | 2024-02-06 13:26 | Discharge Summary ---
Discharge Summary Date of Service February 06, 2024 Principal Dx & Hospital Course #1 = Principal Diagnosis (1) Exertional angina: Patient reported to the ED on 02/04 following an office visit with his unit aid to get evaluated for need of a cardiac cath. He has been experiencing chest pain w/ exertion and when walking up hills. It is consistently reproduced with exertion and does improve with rest. Patient has noticed it has been gradually worsening over the past several weeks and coming on with less amounts of exercise. Patient denies pain at rest. Troponins were negative. EKG revealed sinus bradycardia and when compared to 06/2020 EKG has inferior T wave inversions. Echo performed that revealed left ventricular systolic function normal, left ventricular wall motion normal, right ventricualr systolic pressure elevated at 30-40 mmHg. No significant valvular heart disease. Cardiology met with patient and after discussion, patient decided to pursue medical management first. Patient was recommended to start on a statin daily. Patient also recommended to follow up with his PCP regarding his cholesterol. He was not interested in pursuing starting a statin until a discussion with them. (2) History of latent tuberculosis: Patient has history of latent TB. He was treated with 9 months of Isoniazid, AFB cultures negative. He follows with pulmonology outpatient. CXR w/o acute findings. Last chest CT was in 12/2023 that showed no acute abnormalities. Isolation not required due to no active disease. Plan Chronic stable issues Asthma: Continue inhalers, montelukast. Evidence of acute exasperation. If cath is negative symptoms could represent reactive airway disease/spasm. No wheezing on admission LOIS: Continue CPAP at bedtime Hypertension: Lisinopril continued Discussed plan of care with at bedside 02/05 Admission HPI Per Admitting Provider Mr. Hampton is a 73-year-old male with a past medical history of hypertension, LOIS, prior history of latent TB treated with 9 months of isoniazid and with negative sputum AFB, and asthma who was seen by pulmonology for outpatient follow-up and was recommended to present to the ER for potential cardiac catheterization for recurrent exertional chest discomfort with walking/exertion, worse with intense exertion, and which resolves with rest and which has not occurred at rest. Patient has had 2 lower stress test in the past but continues to be symptomatic. [place] is traveling out of the country [place] 10 [place]. Was recomme nded for ER evaluation and cardiology consultation for potential catheterization. He has no previously diagnosed coronary disease. Mr. Hampton reports for the last several month she has has chest pain with exertion. Notes whenever he walks up an uphill incline, or when trying to use the treadmill he develops chest pain. Chest pain improves with rest. He has not had symptoms incited at rest. When it occurs it is under the sternum and off a little bit to the left side. Does not radiate. He is exertion himself, so he does associate it with sweating and shortness of breath and notes it tends to happen towards the end of exercise. He does feel is has been coming on more easily/quickly gradually over the last few weeks Last stress test was 2019. Has had 2x stress tests low risk in the past No pain at tiem of assessment No prior history of [place] Denies history of DM +hx of latent TB treated with 9 months of tx several years ago. +latent TB. No leg swelling when taking his medications Denies orthopnea Medical History: Reviewed Medications: Reviewed Surgical History: Reviewed Family history: Reviewed Allergies: Reviewed. PCN Social History: No tobacco use. No vape use. Social rare etoh use. Code Status:Full Discharge Exam Constitutional WD/WN, vitals as above Eyes PERRL, conjunctivae normal, anicteric sclerae Respiratory normal respiratory effort, lungs clear to auscultation Cardiovascular normal rhythm, bradycardic Skin no rashes, warm and dry Psychiatric A+Ox3, euthymic affect Discharge Plan Discharge Items Patient Disposition: Home - Self-Care Reason For Visit: CHEST PAIN Discharge Diagnosis: Chest pain Condition on Discharge: Good Activity: Resume your previous activity Non-emergency contact: Primary Care Provider and Rubber Goods Tester Call non-emergency contact if: you have any medication questions, your symptoms worsen, your pain is not controlled, your pain is worsening, your pain is unusual for you and your pain is concerning for you Follow-up/Referrals: Darren Hoover MD [Primary Care Provider] - 02/13/24 3:25 pm Diet: Heart Healthy and Vegetarian (Lacto-Ovo) Addtl Attending Provider Instructions: Mr. Hampton, You were recently hospitalized to be further evaluated for your chest pain. You were evaluated by the lotus notes developer and have discussed moving forward with medical management. Please see recommendations below regarding your discharge. 1. Please obtain a fasting lipid panel to check your cholesterol Please discuss these results with your PCP Please also discuss starting on a cholesterol medication (statin) with your PCP 2. Please follow up with cardiology at the appointment to be scheduled. 3. Please monitor your blood pressure at home. 4. You may resume previous outpatient medications as prescribed. 5. Please start taking an 81mg Aspirin daily. We recommend a close follow up with your PCP within 1-2 weeks. If you develop any worsening chest pain, shortness of breath, fevers, chills please report to the ER for further care. Sincerely, Lili Green PA-C Pending Studies at Discharge: No Stand-Alone Forms: My [facility] [employer], Smoking Cessation Medications and DC Order Prescriptions: Continued albuterol sulfate 90 mcg/actuation HFA aerosol inhaler 2 puff inhalation Q6H PRN (Reason: shortness of breath or wheezing) Qty: 8.5 3RF Rx Instructions: ProAir, Proventil or Ventolin diphenhydramine HCl [Benadryl] 25 mg capsule 25 mg PO Q8H PRN (Reason: Insomnia) Humira 40 mg/0.8 mL syringe kit 40 mg subcut Q14D Dupixent Pen 200 mg/1.14 mL pen injector 200 mg subcut .EVERY 2 WEEKS Rx Instructions: 1 injection every 2 weeks fluticasone propionate [Allergy Relief (fluticasone)] 50 mcg/actuation spray,suspension 1 spray intranasal DAILY Qty: 9.9 1RF Rx Instructions: administer into each nostril once daily montelukast [Singulair] 10 mg tablet 10 mg PO QPM Qty: 30 2RF lisinopril-hydrochlorothiazide 20-12.5 mg tablet 1 tab PO BID metoprolol succinate 25 mg tablet extended release 24 hr 25 mg PO DAILY fluticasone propion-salmeterol [Advair Diskus] 100-50 mcg/dose blister with device 1 inh INH DAILY No Action (DME) CPAP Machine Rx Instructions: uses at night. Discharge Orders: Discharge Order (Routine); Ordered 02/06/24 Ordered By: Lili Green Admission Data Admit Date/Time: 02/05/24 12:42 Attending Provider: Pérez Beaver Admit Provider: Jerrod Arboleda Primary Care Provider: Darren Hoover Other Providers: Jerrod Arboleda; Flako Chapman Other Interventions: Discharge Summary Assessment (RN) Last Done: 02/06/24 14:04 Hospital Stay Data Consultations 02/05/24 12:11 ED Decision to Admit Stat 02/05/24 22:00 Consult Cardiology Routine Pending Results Patient Have Any Pending Studies at Discharge: No Discharge Instructions Given to Patient (Per Discharging Provider) Mr. Hampton, Jeremy were recently hospitalized to be further evaluated for your chest pain. You were evaluated by the lotus notes developer and have discussed moving forward with medical management. Please see recommendations below regarding your discharge. 1. Please obtain a fasting lipid panel to check your cholesterol Please discuss these results with your PCP Please also discuss starting on a cholesterol medication (statin) with your PCP 2. Please follow up with cardiology at the appointment to be scheduled. 3. Please monitor your blood pressure at home. 4. You may resume previous outpatient medications as prescribed. 5. Please start taking an 81mg Aspirin daily. We recommend a close follow up with your PCP within 1-2 weeks. If you develop any worsening chest pain, shortness of breath, fevers, chills please report to the ER for further care. Sincerely, Lili Green PA-C Total Time Total Time Spent Total Time Spent (In Minutes): 35 Total Time Includes: Examination of the Patient, Discharge Planning and Medication Reconciliation Coding Level of Care Code 01088 INP/OBS DISCH >30 MIN Diagnoses Exertional angina I20.89 History of latent tuberculosis Z86.15
[2024-02-06 14:10] VITALS: BP 122/66; PULSE 58
[2024-02-06] MEDS: LISINOPRIL/HCTZ 20/12.5MG 1 TAB TAB PO SCH (14:48)
[2024-02-06] MEDS: ENOXAPARIN INJ 40 MG/0.4 ML SYR SQ SCH (14:48)
[2024-02-06] MEDS: FLUTICASONE/VILANTEROL 100/25MCG 14 PUFFS/INHALER INH SCH (14:48)
--- NOTE | 2024-02-06 20:54 | XCELERA ---
[id number] \\[id number]
== END 2024-02-06 14:49 | disposition home or self-care (01) ==
LOC: 2W 10:08 → ED 10:08 → SUATTDRO 12:42 → 2W 17:00